=== PATIENT | male | born 1975 | race Caucasian/White ===

== ENCOUNTER 2024-01-11 14:01 | Emergency (ER) | payer MEDICAID ==
[~2024-01-11] VITALS: Ht 180.3 cm; Wt 57.1 kg
[2024-01-11] MEDS ORDERED: CEPH-585 PO (15:22)
[2024-01-11 15:34] VITALS: BP 116/90; PULSE 88; RESP 18; TEMP 97.7; O2SAT 97
== END 2024-01-11 15:35 | disposition home or self-care (01) ==
LOC: ER 14:01
DX: L03.012 Cellulitis of left finger (principal); F10.90 Alcohol use, unspecified, uncomplicated; F12.90 Cannabis use, unspecified, uncomplicated; E03.9 Hypothyroidism, unspecified
CPT/HCPCS: 99281

== ENCOUNTER 2025-04-02 08:42 | Outpatient (CLI) | payer MEDICAID ==
[2025-04-02 09:26] VITALS: PULSE 81; RESP 16; O2SAT 97
--- NOTE | 2025-04-02 17:08 | PROCEDURE NOTE - Respiratory ---
Procedure Note-Respiratory Providers to CC Copies To 1: SUMMER BRUSH MD Procedure Name: This is a spirometry study dated April 02, 2025. Spirometry measurements: Both the forced vital capacity and the FEV1 are normal. The FEV1 ratio is normal. The flow rate measurements are normal. Bronchodilator was not administered during this examination. Conclusion: Normal spirometry study. We have no previous studies for comparison. There is no evidence for COPD based on this study. However, if this patient desires to maintain normal lung function then he should completely abstain from smoking cigarettes and/or marijuana. LANRE CONTRERAS MD Apr 02, 2025 17:08
== END 2025-04-02 23:59 | disposition home or self-care (01) ==
LOC: RT 08:42
PROVIDERS: ATTEND General Practice
DX: R06.02 Shortness of breath (principal)
CPT/HCPCS: 94010; 94760